=== PATIENT | male | born 1985 | race Caucasian/White ===

== ENCOUNTER 2016-03-08 20:09 | Emergency (ER) | payer OTHER ==
--- NOTE | 2016-03-08 20:48 | ED ORDER SUMMARY ---
..... Patient: ESPERANZA PORRAS OrderSheet [facility] VisitID: [id number] [address] [place] [address] 30y, M Registration Date/Time: 03/08/2016 ORDER SHEET Weight: 88.4 kg (stated) Allergies: No Known Drug Allergy GENERAL ORDERS: Finger Right (5) Urgent (20:26 03/08/2016 Ceci Pereyra) (Ack 20:32 [employer] [facility] Sewage Reticulation Drafting Officer) (20:38 MCampbell) Finger Right (post reduction) (post reduction) Urgent (20:39 03/08/2016 Grady Matias verbal order read back to Ceci Pereyra) (Ack 20:44 [employer] [facility] Sewage Reticulation Drafting Officer) (20:50 MCampbell) Splint (Finger) (Right) (Small) (tape) (deepika tape) (20:47 03/08/2016 Ceci Pereyra) (21:06 Chente Matias) MEDICATION ORDERS: IV FLUIDS: ORDER SHEET NOTES: [Electronically signed by Mona Rodriguez P.A.-C (21:01 03/08/2016)] [Electronically signed by Benson Valenzuela R.N. (04:56 03/09/2016)] [Electronically locked/signed by Benson Valenzuela R.N. (04:56 03/09/2016)]
--- NOTE | 2016-03-08 20:48 | ED ORDER SUMMARY ---
..... Patient: ESPERANZA PORRAS OrderSheet [facility] VisitID: [id number] [address] [place] [address] 30y, M Registration Date/Time: 03/08/2016 ORDER SHEET Weight: 88.4 kg (stated) Allergies: No Known Drug Allergy GENERAL ORDERS: Finger Right (5) Urgent (20:26 03/08/2016 Ceci Pereyra) (Ack 20:32 [employer] [facility] Bartenders) (20:38 MCampbell) Finger Right (post reduction) (post reduction) Urgent (20:39 03/08/2016 Grady Matias verbal order read back to Ceci Pereyra) (Ack 20:44 [employer] [facility] Bartenders) (20:50 MCampbell) Splint (Finger) (Right) (Small) (tape) (deepika tape) (20:47 03/08/2016 Ceci Pereyra) (21:06 Chente Matias) MEDICATION ORDERS: IV FLUIDS: ORDER SHEET NOTES: [Electronically signed by Mona Rodriguez P.A.-C (21:01 03/08/2016)] [Electronically signed by Benson Valenzuela R.N. (04:56 03/09/2016)] [Electronically locked/signed by Benson Valenzuela R.N. (04:56 03/09/2016)]
--- NOTE | 2016-03-08 20:48 | ED NURSING NOTES ---
Clinical Report - Nurses [facility] [address] [place] [address] 03/08/2016 20:10 Patient: ESPERANZA PORRAS TRIAGE Triage time 20:Mar 08 2016. Acuity: LEVEL 4. Chief Complaint: LEFT UPPER EXTREMITY PAIN. --20:22 Benson Valenzuela R.N. 20:19 03/08/16. BP: 133/83. HR: 77. RR: 18. O2 saturation: 98%. Temp: 98.3 F. Pain level now 0/10. --20:22 Benson Valenzuela R.N. Weight: 88.4 kg stated. Height/Length: 69 inches Per Patient. BMI: 28.8. --20:21 Benson Valenzuela R.N. Allergies No Known Drug Allergy. --04:55 Benson Valenzuela R.N. History Arrived by private vehicle. ( Pt was working with his horse, horse bucked and jammed his L pinky into saddle. sensation intact cap refill less than 2 seconds, Rom limited). Injury occurred. This occurred just prior to arrival. Treatment SENIOR TECHNOLOGIST: None. SOCIAL HX: Never smoker. Occasional alcohol use. No drug use. --20:22 Benson Valenzuela R.N. Assessment The patient states feels the same. --20:22 Benson Valenzuela R.N. Interventions ID band on patient. He was not taken to a treatment room. --20:22 Benson Valenzuela R.N. PHYSICAL ASSESSMENT EXTREMITIES: Right little finger: tenderness and swelling. Limited movement secondary to pain (diminished flexion and extension). Tip of right little finger. --20:23 Benson Valenzuela R.N. GENERAL / NEURO / PSYCH: Oriented X 4. Appears in no acute distress. Appears in pain. --20:24 Benson Valenzuela R.N. DISPOSITION / DISCHARGE Discharge instructions provided and reviewed with the patient. Patient verbalized understanding. Written instructions provided in Turkmen. The patient was discharged by the physician health information assistant. He was discharged home and accompanied by family. He left the Emergency Department ambulatory and via private vehicle. Patient driving. ( Pt ambulated on discharge steady on his feet pt verbalized understanding of discharge instructions and follow up care.). --20:55 Benson Valenzuela R.N. 20:53 03/08/16. BP: 138/76. HR: 72. RR: 16. O2 saturation: 99%. Pain level now 0/10. --20:55 Benson Valenzuela R.N. Locked/Released at 03/09/2016 4:56 by Benson Valenzuela R.N.
--- NOTE | 2016-03-08 20:48 | ED NURSING NOTES ---
Clinical Report - Nurses [facility] [address] [place] [address] 03/08/2016 20:10 Patient: ESPERANZA PORRAS TRIAGE Triage time 20:Mar 08 2016. Acuity: LEVEL 4. Chief Complaint: LEFT UPPER EXTREMITY PAIN. --20:22 Benson Valenzuela R.N. 20:19 03/08/16. BP: 133/83. HR: 77. RR: 18. O2 saturation: 98%. Temp: 98.3 F. Pain level now 0/10. --20:22 Benson Valenzuela R.N. Weight: 88.4 kg stated. Height/Length: 69 inches Per Patient. BMI: 28.8. --20:21 Benson Valenzuela R.N. Allergies No Known Drug Allergy. --04:55 Benson Valenzuela R.N. History Arrived by private vehicle. ( Pt was working with his horse, horse bucked and jammed his L pinky into saddle. sensation intact cap refill less than 2 seconds, Rom limited). Injury occurred. This occurred just prior to arrival. Treatment INFORMATICS MANAGER: None. SOCIAL HX: Never smoker. Occasional alcohol use. No drug use. --20:22 Benson Valenzuela R.N. Assessment The patient states feels the same. --20:22 Benson Valenzuela R.N. Interventions ID band on patient. He was not taken to a treatment room. --20:22 Benson Valenzuela R.N. PHYSICAL ASSESSMENT EXTREMITIES: Right little finger: tenderness and swelling. Limited movement secondary to pain (diminished flexion and extension). Tip of right little finger. --20:23 Benson Valenzuela R.N. GENERAL / NEURO / PSYCH: Oriented X 4. Appears in no acute distress. Appears in pain. --20:24 Benson Valenzuela R.N. DISPOSITION / DISCHARGE Discharge instructions provided and reviewed with the patient. Patient verbalized understanding. Written instructions provided in Telugu. The patient was discharged by the physician staff assistant. He was discharged home and accompanied by family. He left the Emergency Department ambulatory and via private vehicle. Patient driving. ( Pt ambulated on discharge steady on his feet pt verbalized understanding of discharge instructions and follow up care.). --20:55 Benson Valenzuela R.N. 20:53 03/08/16. BP: 138/76. HR: 72. RR: 16. O2 saturation: 99%. Pain level now 0/10. --20:55 Benson Valenzuela R.N. Locked/Released at 03/09/2016 4:56 by Benson Valenzuela R.N.
--- NOTE | 2016-03-08 20:48 | ED CLINICAL REPORT ---
Clinical Report - Physicians/Mid Levels [facility] [address] [place] [address] 03/08/2016 20:10 Patient: ESPERANZA PORRAS Time Seen: 20:45 Mar 08 2016. Arrived- By private vehicle. Historian- patient. HISTORY OF PRESENT ILLNESS Chief Complaint: Injury to the right 5th (little) finger. The injury happened just prior to arrival. Patient is experiencing mild pain. Patient denies injury to the head or neck. 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 REVIEW OF SYSTEMS No tingling or skin laceration. All systems otherwise negative, except as recorded above. PAST HISTORY The patient's dominant hand is the right. SOCIAL HISTORY Never smoker. Alcohol use. ADDITIONAL NOTES The nursing notes have been reviewed. PHYSICAL EXAM Vital Signs: 03/08/2016 20:19 BP: 133/83. HR: 77. RR: 18. O2 saturation: 98%. Temp: 98.3 F. Appearance: Alert. No acute distress. Head: Head atraumatic. ENT: Ears normal. CVS: Normal heart rate and rhythm. Heart sounds normal. Respiratory: No respiratory distress. Breath sounds normal. Skin: Skin warm. Skin intact. Extremities: Right hand web space. No tenderness or swelling. Right little finger: (proximal area of swelling and signs of deformity, good distal color, and good distal sensation). No hand injury. Neuro, Vascular and Tendons: Vascular status intact. Sensation intact. Motor intact. PROGRESS AND PROCEDURES Digital Nerve Block - Finger: Time: 2039. Time-out completed immediately before the procedure. Digital nerve block performed on the right little finger. Web space and dorsal approach utilized. Skin prepped. Total volume of 4 mL 0.5% Marcaine infiltrated via two punctures using a 30-gauge needle. No complications encountered. Excellent anesthesia achieved. Reduction of Dislocated Finger: Time-out completed immediately before the procedure. Anesthesia provided by digital block. Reduced dislocation of right little finger. Reassessed post-reduction. Neurovascular status intact. Exam indicated reduction. Confirmed reduction on X-ray. Deepika taped. Course of Care: Pt in the er stable. No signs of tendon injury. good distal ns. Pt to f/u outpatient. Pt stable. NO signs of complications. Good post reduction exam, and deepika tape. Patient is stable. Patient/family counseled. Disposition: Discharged. CLINICAL IMPRESSION Dislocation of the proximal interphalangeal joint of the right little finger. INSTRUCTIONS Apply ice. Elevate affected areas above chest level. OTC Medications: Take OTC medications according to label instructions. Available over the counter. Acetaminophen (available over the counter): take according to label instructions. Motrin (available over the counter): take according to label instructions. Follow-up: Follow up with your doctor in three days. (Electronically signed by Mona Rodriguez P.A.-C 03/08/2016 21:01)
--- NOTE | 2016-03-08 20:48 | ED CLINICAL REPORT ---
Clinical Report - Physicians/Mid Levels [facility] [address] [place] [address] 03/08/2016 20:10 Patient: ESPERANZA PORRAS Time Seen: 20:45 Mar 08 2016. Arrived- By private vehicle. Historian- patient. HISTORY OF PRESENT ILLNESS Chief Complaint: Injury to the right 5th (little) finger. The injury happened just prior to arrival. Patient is experiencing mild pain. Patient denies injury to the head or neck. 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 REVIEW OF SYSTEMS No tingling or skin laceration. All systems otherwise negative, except as recorded above. PAST HISTORY The patient's dominant hand is the right. SOCIAL HISTORY Never smoker. Alcohol use. ADDITIONAL NOTES The nursing notes have been reviewed. PHYSICAL EXAM Vital Signs: 03/08/2016 20:19 BP: 133/83. HR: 77. RR: 18. O2 saturation: 98%. Temp: 98.3 F. Appearance: Alert. No acute distress. Head: Head atraumatic. ENT: Ears normal. CVS: Normal heart rate and rhythm. Heart sounds normal. Respiratory: No respiratory distress. Breath sounds normal. Skin: Skin warm. Skin intact. Extremities: Right hand web space. No tenderness or swelling. Right little finger: (proximal area of swelling and signs of deformity, good distal color, and good distal sensation). No hand injury. Neuro, Vascular and Tendons: Vascular status intact. Sensation intact. Motor intact. PROGRESS AND PROCEDURES Digital Nerve Block - Finger: Time: 2039. Time-out completed immediately before the procedure. Digital nerve block performed on the right little finger. Web space and dorsal approach utilized. Skin prepped. Total volume of 4 mL 0.5% Marcaine infiltrated via two punctures using a 30-gauge needle. No complications encountered. Excellent anesthesia achieved. Reduction of Dislocated Finger: Time-out completed immediately before the procedure. Anesthesia provided by digital block. Reduced dislocation of right little finger. Reassessed post-reduction. Neurovascular status intact. Exam indicated reduction. Confirmed reduction on X-ray. Deepika taped. Course of Care: Pt in the er stable. No signs of tendon injury. good distal ns. Pt to f/u outpatient. Pt stable. NO signs of complications. Good post reduction exam, and deepika tape. Patient is stable. Patient/family counseled. Disposition: Discharged. CLINICAL IMPRESSION Dislocation of the proximal interphalangeal joint of the right little finger. INSTRUCTIONS Apply ice. Elevate affected areas above chest level. OTC Medications: Take OTC medications according to label instructions. Available over the counter. Acetaminophen (available over the counter): take according to label instructions. Motrin (available over the counter): take according to label instructions. Follow-up: Follow up with your doctor in three days. (Electronically signed by Mona Rodriguez P.A.-C 03/08/2016 21:01)
--- NOTE | 2016-03-08 21:16 | DIAGNOSTIC IMAGING REPORT ---
PROCEDURE: XR FINGER - RIGHT (fifth finger). INDICATION: TRAUMA/INJURY TECHNIQUE: Three views (2034). COMPARISON: None. FINDINGS: There is complete posterior and ulnar dislocation of the right fifth proximal interphalangeal joint with overlapping of the phalanges. There is no evidence of fracture. IMPRESSION: 1. Dislocation of the right fifth proximal interphalangeal joint.
--- NOTE | 2016-03-08 21:21 | DIAGNOSTIC IMAGING REPORT ---
PROCEDURE: XR FINGER - RIGHT (fifth finger). INDICATION: Reduction of dislocated PIP joint. TECHNIQUE: Three views (2044). COMPARISON: Compare radiographs earlier today (03/08/2016, 2034). FINDINGS: There has been reduction of dislocated right proximal interphalangeal joint (anatomic position). No evidence of fracture. IMPRESSION: 1. Reduction of dislocated right proximal interphalangeal joint (anatomic position).
--- NOTE | 2016-03-09 04:56 | ED MED RECONCILIATION SUMMARY ---
Patient: ESPERANZA PORRAS Medication Reconciliation Report [facility] VisitID: [id number] [address] [place] [address] 30y, M Registration Date/Time: 03/08/2016 Weight: 88.4 kg Height/Length: 69 in. BMI: 28.8 ALLERGIES: No Known Drug Allergy The patient's Home Medications are listed below: Not obtained. The source(s) of the original Home Medication information: Not obtained. The following Medications were given to the patient in the Emergency Department: None. The following Medications were prescribed to the patient: Take OTC medications according to label instructions. Available over the counter. -- Mona Rodriguez, P.A.-C Acetaminophen (available over the counter): take according to label instructions. -- Mona Rodriguez, P.A.-C Motrin (available over the counter): take according to label instructions. -- Mona Rodriguez, P.A.-C
--- NOTE | 2016-03-09 04:56 | ED MED RECONCILIATION SUMMARY ---
Patient: ESPERANZA PORRAS Medication Reconciliation Report [facility] VisitID: [id number] [address] [place] [address] 30y, M Registration Date/Time: 03/08/2016 Weight: 88.4 kg Height/Length: 69 in. BMI: 28.8 ALLERGIES: No Known Drug Allergy The patient's Home Medications are listed below: Not obtained. The source(s) of the original Home Medication information: Not obtained. The following Medications were given to the patient in the Emergency Department: None. The following Medications were prescribed to the patient: Take OTC medications according to label instructions. Available over the counter. -- Mona Rodriguez, P.A.-C Acetaminophen (available over the counter): take according to label instructions. -- Mona Rodriguez, P.A.-C Motrin (available over the counter): take according to label instructions. -- Mona Rodriguez, P.A.-C
--- NOTE | 2016-03-09 04:56 | ED MAR SUMMARY ---
..... Medication Administration Record [facility] [address] [place], [place] [id number] Patient: ESPERANZA PORRAS Visit ID: [id number] 30y, M Weight: 88.4 kg Height/Length: 69 in BMI: 28.8 ALLERGIES: No Known Drug Allergy
--- NOTE | 2016-03-09 04:56 | ED MAR SUMMARY ---
..... Medication Administration Record [facility] [address] [place], [place] [id number] Patient: ESPERANZA PORRAS Visit ID: [id number] 30y, M Weight: 88.4 kg Height/Length: 69 in BMI: 28.8 ALLERGIES: No Known Drug Allergy
--- NOTE | 2016-03-09 04:56 | ED DISCHARGE INSTRUCTIONS ---
Patient: ESPERANZA PORRAS General Instructions [facility] VisitID: [id number] [place] [address] 30y, M Registration Date/Time: 03/08/2016 Dislocation of the proximal interphalangeal joint of the right little finger. INSTRUCTIONS Apply ice. Elevate affected areas above chest level. OTC Medications: Take OTC medications according to label instructions. Available over the counter. Acetaminophen (available over the counter): take according to label instructions. Motrin (available over the counter): take according to label instructions. Follow-up: Follow up with your doctor in three days. ADDITIONAL INFORMATION Dislocation:Finger [Reduced] A dislocated finger occurs when the ligaments that hold the joint together are torn allowing the bones to move apart and become stuck out of place. This causes pain, swelling, and bruising. Sometimes there is also a small "chip" fracture. Once the joint is aligned again, it will take about six weeks for the ligaments to heal. During this time, the finger should be protected from re-injury. "Deepika Tape" secures the injured finger to the one next to it. Deepika tape allows motion of the joint, while protecting it from dislocating again. Deepika tape can be left in place for up to six weeks. Hand exercises may be prescribed at your follow-up visit to speed healing and maintain function. Most finger dislocations regain full function. But, it may take 12-18 months before all discomfort and swelling go away and full function returns. Home Care: 1) Keep your hand elevated to reduce pain and swelling. When sitting or lying down elevate your arm above the level of your heart. You can do this by placing your arm on a pillow that rests on your chest or on a pillow at your side. This is most important during the first 48 hours after injury. 2) Apply an ice pack (ice cubes in a plastic bag, wrapped in a towel) over the injured area for 20 minutes every 1-2 hours the first day. Continue with ice packs 3-4 times a day for the next two days, then as needed for the relief of pain and swelling. 3) If you have a removable splint , you may take it off to bathe, then reapply it. If you have a permanent splint , cover the entire hand with a plastic bag and seal it at the top with a rubber band before bathing. 4) If deepika tape was applied and it becomes wet or dirty, change it. You may replace it with paper, plastic or cloth tape. Cloth tape and paper tapes must be kept dry. 6) You may use acetaminophen (Tylenol) or ibuprofen (Motrin, Advil) to control pain, unless another pain medicine was prescribed. [ NOTE : If you have chronic liver or kidney disease or ever had a stomach ulcer or GI bleeding, talk with your doctor before using these medicines.] 7) No sports or P.E. until cleared by your doctor. Follow Up with your doctor in one week or as advised. Splints should not be left in place longer than three weeks to avoid stiffness and loss of joint function. It is important that you see the referral doctor to determine how long to your splint in place and when to begin hand exercises. [NOTE: Any X-rays taken will be reviewed by a radiologist. You will be notified of any new findings that may affect your care.] Get Prompt Medical Attention if any of the following occur: -- Pain or swelling increases -- Redness, warmth or drainage of the injured finger -- Finger becomes cold, blue, numb or tingly You have been given the following additional information: Dislocated Finger (Electronically signed by Mona Rodriguez P.A.-C 03/08/2016 21:01)
== END 2016-03-08 20:51 | disposition home or self-care (01) ==
LOC: ED SRH 20:09
DX: S63.286A Dislocation of proximal interphalangeal joint of right little finger, initial encounter (principal); W55.12XA Struck by horse, initial encounter; Y93.89 Activity, other specified; Y92.9 Unspecified place or not applicable; Y99.9 Unspecified external cause status